=== PATIENT | female | born 1960 | race Caucasian/White ===

== ENCOUNTER → 2020-01-07 | Outpatient (CLI) | payer MEDICARE ==
[~2020-01-07] MED LIST: ASPIRIN E.C. 8181 MG PO; COLACE100 M1 PO; COUMADIN 5MG5 MG/TAB PO; FISH OIL 1000MG1 CAP PO; GLUCOPHAGE PO; HCTZ 25MG25 MG PO; LOPRESSOR 225 MG/TAB PO; SIMVASTATIN40 M1 PO; ULTRAM50 M1 PO
[2020-01-07 14:18] LABS: PROTHROMBIN TIME 52.8 SECONDS (9.0-12.0)
== END ==
LOC: LAB 12:15
PROVIDERS: Internal Medicine
DX: Z51.81 Encounter for therapeutic drug level monitoring (principal); Z79.01 Long term (current) use of anticoagulants

== ENCOUNTER 2020-01-09 13:56 | Emergency (ER) | payer MEDICARE ==
[~2020-01-09] VITALS: Ht 167.6 cm; Wt 101.8 kg
[2020-01-09 15:00] LABS: EOS # 0.2 (0.04-0.40); EOS % 1.7 % (1.0-5.0); HEMOGLOBIN 8.3 g/dL (12.5-16.0); LYMPH# 1.6 (1.50-4.00); MEAN CELL VOLUME 90 fl (78-100); MEAN CORPUSCULAR HEMOGLOBIN 28 pg (27-31); MEAN CORPUSCULAR HGB CONC 31 g/dL (33-37); MEAN PLATELET VOLUME 9.5 fl (7.4-10.4); NEU # 7.6 (1.40-6.50); PLATELET COUNT 428 K/mm3 (130-400); RED BLOOD COUNT 2.99 M/mm3 (4.10-5.30); RED CELL DISTRIBUTION WIDTH 13.6 % (11.5-14.5); WHITE BLOOD COUNT 10.4 K/mm3 (4.8-10.8)
[2020-01-09 15:13] LABS: ALBUMIN 3.6 g/dL (3.5-5.0)
[2020-01-09] MEDS ORDERED: FISH OIL 1000MG1 CAP PO (15:13)
[2020-01-09 15:14] LABS: POTASSIUM 4.2 mmol/L (3.5-5.1); PROTHROMBIN TIME 33.6 SECONDS (9.0-12.0)
[2020-01-09] MEDS ORDERED: GLUCOPHAGE PO (15:14)
[2020-01-09] MEDS ORDERED: ASPIRIN E.C. 8181 MG PO (15:14)
[2020-01-09] MEDS ORDERED: HCTZ 25MG25 MG PO (15:14)
[2020-01-09] MEDS ORDERED: COLACE100 M1 PO (15:14)
[2020-01-09 15:15] LABS: CALCIUM 9.9 mg/dL (8.3-10.5)
[2020-01-09] MEDS ORDERED: ULTRAM50 M1 PO (15:15)
[2020-01-09] MEDS ORDERED: SIMVASTATIN40 M1 PO (15:15)
[2020-01-09] MEDS ORDERED: LOPRESSOR 225 MG/TAB PO (15:15)
[2020-01-09 15:16] LABS: TOTAL PROTEIN 7.1 g/dL (6.4-8.3)
[2020-01-09 15:18] LABS: TOTAL BILIRUBIN 0.3 mg/dL (0.2-1.2)
[2020-01-09] MEDS ORDERED: COUMADIN 5MG5 MG/TAB PO (15:18)
[2020-01-09 15:29] LABS: TROPONIN-I 0.09 ng/mL (<0.030)
[2020-01-09 17:12] VITALS: BP 140/81
== END 2020-01-09 17:26 | disposition short-term general hospital (02) ==
LOC: ED 13:56
PROVIDERS: Nurse Practitioner Primary Care
DX: I11.0 Hypertensive heart disease with heart failure (principal); I50.9 Heart failure, unspecified; D64.9 Anemia, unspecified; I25.10 Atherosclerotic heart disease of native coronary artery without angina pectoris; E11.9 Type 2 diabetes mellitus without complications; Z79.01 Long term (current) use of anticoagulants; Z79.82 Long term (current) use of aspirin; Z79.84 Long term (current) use of oral hypoglycemic drugs; Z86.73 Personal history of transient ischemic attack (TIA), and cerebral infarction without residual deficits; Z95.2 Presence of prosthetic heart valve

== ENCOUNTER → 2020-01-15 | Outpatient (CLI) | payer MEDICARE ==
[2020-01-09 17:12] VITALS: BP 140/81
[2020-01-15 12:59] LABS: PROTHROMBIN TIME 21.1 SECONDS (9.0-12.0)
== END ==
LOC: LAB 11:37
PROVIDERS: Internal Medicine
DX: Z79.01 Long term (current) use of anticoagulants (principal); Q23.1 Congenital insufficiency of aortic valve; I63.9 Cerebral infarction, unspecified; Z95.2 Presence of prosthetic heart valve

== ENCOUNTER → 2020-01-19 | Outpatient (CLI) | payer MEDICARE ==
[2020-01-09 17:12] VITALS: BP 140/81
[2020-01-19 12:49] LABS: PROTHROMBIN TIME 19.1 SECONDS (9.0-12.0)
== END ==
LOC: LAB 12:23
PROVIDERS: Internal Medicine
DX: Q23.1 Congenital insufficiency of aortic valve (principal); I63.9 Cerebral infarction, unspecified; Z95.2 Presence of prosthetic heart valve

== ENCOUNTER → 2020-01-26 | Outpatient (CLI) | payer MEDICARE ==
[2020-01-09 17:12] VITALS: BP 140/81
[2020-01-26 13:12] LABS: PROTHROMBIN TIME 10.6 SECONDS (9.0-12.0)
== END ==
LOC: LAB 12:34
PROVIDERS: Internal Medicine
DX: Q23.1 Congenital insufficiency of aortic valve (principal); I63.9 Cerebral infarction, unspecified; Z79.01 Long term (current) use of anticoagulants; Z95.2 Presence of prosthetic heart valve

== ENCOUNTER → 2020-02-02 | Emergency (ER) | payer MEDICARE ==
[~2020-02-02] VITALS: Wt 97.7 kg
[2020-02-02 13:01] LABS: EOS # 0.2 (0.04-0.40); EOS % 3.7 % (1.0-5.0); HEMATOCRIT 28.1 % (37.0-47.0); HEMOGLOBIN 8.5 g/dL (12.5-16.0); LYMPH# 2.1 (1.50-4.00); MEAN CELL VOLUME 87 fl (78-100); MEAN CORPUSCULAR HEMOGLOBIN 26 pg (27-31); MEAN CORPUSCULAR HGB CONC 30 g/dL (33-37); MEAN PLATELET VOLUME 9.6 fl (7.4-10.4); MONO # 0.6 (0.20-0.80); PLATELET COUNT 331 K/mm3 (130-400); RED BLOOD COUNT 3.24 M/mm3 (4.10-5.30); RED CELL DISTRIBUTION WIDTH 14.8 % (11.5-14.5)
[2020-02-02 13:12] LABS: ALBUMIN 3.6 g/dL (3.5-5.0); POTASSIUM 3.7 mmol/L (3.5-5.1)
[2020-02-02 13:14] LABS: CALCIUM 9.8 mg/dL (8.3-10.5)
[2020-02-02 13:15] LABS: TOTAL PROTEIN 7.6 g/dL (6.4-8.3)
[2020-02-02 13:17] LABS: TOTAL BILIRUBIN 0.1 mg/dL (0.2-1.2)
[2020-02-02 14:02] VITALS: BP 122/69
== END ==
LOC: ED 12:33
PROVIDERS: Nurse Practitioner Primary Care
DX: R79.1 Abnormal coagulation profile (principal); I10 Essential (primary) hypertension; Z79.01 Long term (current) use of anticoagulants; Z79.82 Long term (current) use of aspirin; Z86.73 Personal history of transient ischemic attack (TIA), and cerebral infarction without residual deficits
CPT/HCPCS: J3430

== ENCOUNTER → 2020-02-02 | Outpatient (CLI) | payer MEDICARE ==
[2020-01-09 17:12] VITALS: BP 140/81
[2020-02-02 11:38] LABS: PROTHROMBIN TIME > 120.0 SECONDS (9.0-12.0)
== END ==
LOC: LAB 09:21
PROVIDERS: Internal Medicine
DX: Q23.1 Congenital insufficiency of aortic valve (principal); I63.9 Cerebral infarction, unspecified; Z95.2 Presence of prosthetic heart valve

== ENCOUNTER → 2020-02-03 | Outpatient (CLI) | payer MEDICARE ==
[2020-02-02 14:02] VITALS: BP 122/69
[2020-02-03 09:33] LABS: PROTHROMBIN TIME 104.1 SECONDS (9.0-12.0)
== END ==
LOC: LAB 07:12
PROVIDERS: Nurse Practitioner Primary Care
DX: D68.59 Other primary thrombophilia (principal)

== ENCOUNTER → 2020-02-04 | Outpatient (CLI) | payer MEDICARE ==
[2020-02-02 14:02] VITALS: BP 122/69
[2020-02-04 09:54] LABS: PROTHROMBIN TIME 60.9 SECONDS (9.0-12.0)
== END ==
LOC: LAB 07:05
PROVIDERS: Internal Medicine
DX: Q23.1 Congenital insufficiency of aortic valve (principal); I63.9 Cerebral infarction, unspecified; Z95.2 Presence of prosthetic heart valve

== ENCOUNTER → 2020-02-05 | Outpatient (CLI) | payer MEDICARE ==
[2020-02-02 14:02] VITALS: BP 122/69
[2020-02-05 07:40] LABS: PROTHROMBIN TIME 33.2 SECONDS (9.0-12.0)
== END ==
LOC: LAB 07:01
PROVIDERS: Internal Medicine
DX: Q22.1 Congenital pulmonary valve stenosis (principal); I63.9 Cerebral infarction, unspecified; Z95.2 Presence of prosthetic heart valve

== ENCOUNTER → 2020-02-06 | Outpatient (CLI) | payer MEDICARE ==
[2020-02-02 14:02] VITALS: BP 122/69
[2020-02-06 13:02] LABS: PROTHROMBIN TIME 21.8 SECONDS (9.0-12.0)
== END ==
LOC: LAB 12:33
PROVIDERS: Internal Medicine
DX: Q23.1 Congenital insufficiency of aortic valve (principal); I63.9 Cerebral infarction, unspecified; Z95.2 Presence of prosthetic heart valve

== ENCOUNTER → 2020-02-09 | Outpatient (CLI) | payer MEDICARE ==
[2020-02-02 14:02] VITALS: BP 122/69
== END ==
LOC: LAB 09:50
PROVIDERS: Internal Medicine
DX: Q23.1 Congenital insufficiency of aortic valve (principal); I63.9 Cerebral infarction, unspecified; Z95.2 Presence of prosthetic heart valve

== ENCOUNTER → 2020-02-11 | Outpatient (CLI) | payer MEDICARE ==
[2020-02-02 14:02] VITALS: BP 122/69
[2020-02-11 11:45] LABS: PROTHROMBIN TIME 39.2 SECONDS (9.0-12.0)
== END ==
LOC: LAB 09:51
PROVIDERS: Internal Medicine
DX: Q23.1 Congenital insufficiency of aortic valve (principal); I63.9 Cerebral infarction, unspecified; Z95.2 Presence of prosthetic heart valve

== ENCOUNTER → 2020-02-17 | Outpatient (CLI) | payer MEDICARE ==
[2020-02-02 14:02] VITALS: BP 122/69
[2020-02-17 13:08] LABS: PROTHROMBIN TIME 23.3 SECONDS (9.0-12.0)
== END ==
LOC: LAB 12:36
PROVIDERS: Internal Medicine
DX: Q23.1 Congenital insufficiency of aortic valve (principal); I63.9 Cerebral infarction, unspecified; Z95.2 Presence of prosthetic heart valve

== ENCOUNTER → 2020-02-23 | Outpatient (CLI) | payer MEDICARE ==
[2020-02-02 14:02] VITALS: BP 122/69
[2020-02-23 10:43] LABS: PROTHROMBIN TIME 53.4 SECONDS (9.0-12.0)
== END ==
LOC: LAB 09:44
PROVIDERS: Internal Medicine
DX: Q23.1 Congenital insufficiency of aortic valve (principal); I63.9 Cerebral infarction, unspecified; Z95.2 Presence of prosthetic heart valve

== ENCOUNTER → 2020-02-24 | Outpatient (CLI) | payer MEDICARE ==
[2020-02-02 14:02] VITALS: BP 122/69
[2020-02-24 11:20] LABS: PROTHROMBIN TIME 48.9 SECONDS (9.0-12.0)
== END ==
LOC: LAB 10:35
PROVIDERS: Internal Medicine
DX: Q23.1 Congenital insufficiency of aortic valve (principal); I63.9 Cerebral infarction, unspecified; Z95.2 Presence of prosthetic heart valve

== ENCOUNTER → 2020-02-25 | Outpatient (CLI) | payer MEDICARE ==
[2020-02-02 14:02] VITALS: BP 122/69
== END ==
LOC: LAB 09:45
PROVIDERS: Internal Medicine
DX: I63.9 Cerebral infarction, unspecified (principal); Q23.1 Congenital insufficiency of aortic valve; Z95.2 Presence of prosthetic heart valve

== ENCOUNTER → 2020-03-01 | Outpatient (CLI) | payer MEDICARE ==
[2020-02-02 14:02] VITALS: BP 122/69
[2020-03-01 10:27] LABS: PROTHROMBIN TIME 31.1 SECONDS (9.0-12.0)
== END ==
LOC: LAB 09:49
PROVIDERS: Internal Medicine
DX: Q23.1 Congenital insufficiency of aortic valve (principal); I63.9 Cerebral infarction, unspecified; Z95.2 Presence of prosthetic heart valve

== ENCOUNTER → 2020-03-05 | Outpatient (CLI) | payer MEDICARE ==
[2020-02-02 14:02] VITALS: BP 122/69
== END ==
LOC: LAB 07:38
PROVIDERS: Internal Medicine
DX: Q23.1 Congenital insufficiency of aortic valve (principal); I63.9 Cerebral infarction, unspecified; Z95.2 Presence of prosthetic heart valve

== ENCOUNTER 2020-03-15 14:00 | Outpatient (RCR) | payer MEDICARE | END 2020-03-15 14:30 | disposition home or self-care (01) | LOC: CARDREHAB 14:00 | DX: Z48.812 Encounter for surgical aftercare following surgery on the circulatory system (principal); Z95.2 Presence of prosthetic heart valve ==

== ENCOUNTER → 2020-03-19 | Outpatient (CLI) | payer MEDICARE ==
[2020-02-02 14:02] VITALS: BP 122/69
[2020-03-19 12:33] LABS: PROTHROMBIN TIME 26.2 SECONDS (9.0-12.0)
== END ==
LOC: LAB 11:59
PROVIDERS: Internal Medicine
DX: Q23.1 Congenital insufficiency of aortic valve (principal); I63.9 Cerebral infarction, unspecified; Z95.1 Presence of aortocoronary bypass graft

== ENCOUNTER → 2020-03-26 | Outpatient (CLI) | payer MEDICARE ==
[2020-02-02 14:02] VITALS: BP 122/69
[2020-03-26 09:36] LABS: PROTHROMBIN TIME 30.7 SECONDS (9.0-12.0)
== END ==
LOC: LAB 08:45
PROVIDERS: Internal Medicine
DX: Q23.1 Congenital insufficiency of aortic valve (principal); I63.9 Cerebral infarction, unspecified; Z95.2 Presence of prosthetic heart valve

== ENCOUNTER → 2020-04-02 | Outpatient (CLI) | payer MEDICARE ==
[2020-02-02 14:02] VITALS: BP 122/69
== END ==
LOC: LAB 08:33
PROVIDERS: Internal Medicine
DX: Q23.1 Congenital insufficiency of aortic valve (principal); Z95.2 Presence of prosthetic heart valve; I63.9 Cerebral infarction, unspecified

== ENCOUNTER → 2020-04-09 | Outpatient (CLI) | payer MEDICARE ==
[2020-02-02 14:02] VITALS: BP 122/69
[2020-04-09 09:43] LABS: PROTHROMBIN TIME 17.9 SECONDS (9.0-12.0)
== END ==
LOC: LAB 09:00
PROVIDERS: Internal Medicine
DX: Q23.1 Congenital insufficiency of aortic valve (principal); I63.9 Cerebral infarction, unspecified; Z95.2 Presence of prosthetic heart valve

== ENCOUNTER → 2020-04-16 | Outpatient (CLI) | payer MEDICARE ==
[2020-02-02 14:02] VITALS: BP 122/69
== END ==
LOC: LAB 13:30
PROVIDERS: Internal Medicine
DX: Q23.1 Congenital insufficiency of aortic valve (principal); I63.9 Cerebral infarction, unspecified; Z95.2 Presence of prosthetic heart valve

== ENCOUNTER → 2020-07-08 | Outpatient (CLI) | payer MEDICARE ==
[2020-02-02 14:02] VITALS: BP 122/69
[2020-07-08 11:16] LABS: PROTHROMBIN TIME 9.9 SECONDS (9.0-12.0)
== END ==
LOC: LAB 10:09
PROVIDERS: Internal Medicine
DX: I63.9 Cerebral infarction, unspecified (principal); Q23.1 Congenital insufficiency of aortic valve; Z95.2 Presence of prosthetic heart valve

== ENCOUNTER → 2020-11-08 | Outpatient (CLI) | payer MEDICARE ==
[2020-02-02 14:02] VITALS: BP 122/69
[2020-11-08 10:14] LABS: EOS # 0.2 (0.04-0.40); EOS % 2.3 % (1.0-5.0); HEMATOCRIT 37.1 % (37.0-47.0); HEMOGLOBIN 12.2 g/dL (12.5-16.0); LYMPH# 2.6 (1.50-4.00); MEAN CELL VOLUME 89 fl (78-100); MEAN CORPUSCULAR HEMOGLOBIN 29 pg (27-31); MEAN CORPUSCULAR HGB CONC 33 g/dL (33-37); MEAN PLATELET VOLUME 10.8 fl (7.4-10.4); MONO # 0.6 (0.20-0.80); NEU # 4.9 (1.40-6.50); PLATELET COUNT 226 K/mm3 (130-400); RED BLOOD COUNT 4.16 M/mm3 (4.10-5.30); RED CELL DISTRIBUTION WIDTH 12.8 % (11.5-14.5); WHITE BLOOD COUNT 8.3 K/mm3 (4.8-10.8)
[2020-11-08 10:26] LABS: POTASSIUM 3.8 mmol/L (3.5-5.1)
[2020-11-08 10:27] LABS: CALCIUM 10.4 mg/dL (8.3-10.5)
[2020-11-08 10:28] LABS: TOTAL PROTEIN 7.4 g/dL (6.4-8.3)
[2020-11-08 10:30] LABS: TOTAL BILIRUBIN 0.3 mg/dL (0.2-1.2)
== END ==
LOC: LAB 09:47
PROVIDERS: Internal Medicine
DX: E11.9 Type 2 diabetes mellitus without complications (principal); I10 Essential (primary) hypertension; E78.2 Mixed hyperlipidemia; K90.9 Intestinal malabsorption, unspecified

== ENCOUNTER → 2024-01-07 | Outpatient (CLI) | payer MEDICARE ==
[2024-02-27 11:32] LABS: CALCIUM 9.5 mg/dL (8.3-10.5)
[2024-02-27 11:41] LABS: BASO # 0.03 K/mm3 (0.02-0.10); EOS # 0.13 K/mm3 (0.04-0.40); EOS % 2.5 % (1.0-5.0); HEMATOCRIT 40.3 % (37.0-47.0); HEMOGLOBIN 13.5 g/dL (12.5-16.0); LYMPH# 1.81 K/mm3 (1.50-4.00); MEAN CELL VOLUME 89 fl (78-100); MEAN CORPUSCULAR HEMOGLOBIN 30 pg (27-31); MEAN CORPUSCULAR HGB CONC 34 g/dL (33-37); MEAN PLATELET VOLUME 10.9 fl (7.4-10.4); MONO # 0.43 K/mm3 (0.20-0.80); NEU # 2.79 K/mm3 (1.40-6.50); PLATELET COUNT 207 K/mm3 (130-400); RED BLOOD COUNT 4.54 M/mm3 (4.10-5.30); RED CELL DISTRIBUTION WIDTH 11.8 % (11.5-14.5); WHITE BLOOD COUNT 5.2 K/mm3 (4.8-10.8)
== END ==
LOC: LAB 07:57
PROVIDERS: Nurse Practitioner Family
DX: I45.5 Other specified heart block (principal)

== ENCOUNTER → 2024-03-05 | Outpatient (CLI) | payer MEDICARE ==
[2024-03-05 07:54] LABS: BASO # 0.03 K/mm3 (0.02-0.10); EOS # 0.14 K/mm3 (0.04-0.40); EOS % 2.1 % (1.0-5.0); HEMATOCRIT 39.1 % (37.0-47.0); HEMOGLOBIN 13.1 g/dL (12.5-16.0); LYMPH# 1.63 K/mm3 (1.50-4.00); MEAN CELL VOLUME 89 fl (78-100); MEAN CORPUSCULAR HEMOGLOBIN 30 pg (27-31); MEAN CORPUSCULAR HGB CONC 34 g/dL (33-37); MEAN PLATELET VOLUME 10.7 fl (7.4-10.4); MONO # 0.65 K/mm3 (0.20-0.80); NEU # 4.28 K/mm3 (1.40-6.50); PLATELET COUNT 252 K/mm3 (130-400); RED BLOOD COUNT 4.38 M/mm3 (4.10-5.30); RED CELL DISTRIBUTION WIDTH 11.9 % (11.5-14.5); WHITE BLOOD COUNT 6.8 K/mm3 (4.8-10.8)
[2024-03-05 08:02] LABS: ALBUMIN 3.6 g/dL (3.4-4.8)
[2024-03-05 08:03] LABS: CALCIUM 10.5 mg/dL (8.3-10.5)
[2024-03-05 08:05] LABS: TOTAL PROTEIN 7.1 g/dL (6.2-8.1)
[2024-03-05 08:06] LABS: TOTAL BILIRUBIN 0.3 mg/dL (0.2-1.2)
[2024-03-05 08:11] LABS: MAGNESIUM 1.89 mg/dL (1.60-2.60)
[2024-03-05 08:20] LABS: URINE APPEARANCE CLEAR (CLEAR); URINE BILIRUBIN NEGATIVE (NEGATIVE); URINE BLOOD NEGATIVE (NEGATIVE); URINE COLOR YELLOW (YELLOW); URINE GLUCOSE 2+ (NEGATIVE); URINE KETONE NEGATIVE (NEGATIVE); URINE LEUKOCYTE ESTERASE TRACE (NEGATIVE); URINE MUCUS PRESENT (NOT PRESENT); URINE NITRATE NEGATIVE (NEGATIVE); URINE PROTEIN(semi-quant) 2+ (NEGATIVE)
== END ==
LOC: LAB 07:32
PROVIDERS: Internal Medicine
DX: Z12.11 Encounter for screening for malignant neoplasm of colon (principal); Z11.59 Encounter for screening for other viral diseases; I10 Essential (primary) hypertension; E11.9 Type 2 diabetes mellitus without complications; E78.2 Mixed hyperlipidemia

== ENCOUNTER → 2024-07-14 | Day surgery (SDC) | payer MEDICARE | LOC: MSO 07:30 | DX: Z12.11 Encounter for screening for malignant neoplasm of colon (principal); D12.8 Benign neoplasm of rectum; Z95.0 Presence of cardiac pacemaker | CPT/HCPCS: 00811; J2704; J7120 ==